=== PATIENT | female | born 1985 | race African-American/Black ===

== ENCOUNTER 2017-09-25 16:53 | Observation (INO) | payer MEDICAID ==
[~2017-09-25] VITALS: Ht 160 cm; Wt 68.0 kg
[2017-09-25] MEDS ORDERED: PNV1TABL76 MT (17:50)
== END 2017-09-25 18:00 | disposition home or self-care (01) ==
LOC: L&D 16:53
PROVIDERS: ADMIT Specialist; ATTEND Specialist
DX: O62.9 Abnormality of forces of labor, unspecified (principal); O26.893 Other specified pregnancy related conditions, third trimester; R10.30 Lower abdominal pain, unspecified; Z3A.39 39 weeks gestation of pregnancy
CPT/HCPCS: 99281; G0378